=== PATIENT | female | born 1945 | race Caucasian/White ===

== ENCOUNTER 2016-04-17 00:17 | Inpatient (IN) | payer MEDICARE, OTHER ==
[~2016-04-17] VITALS: Ht 165.1 cm; Wt 86.2 kg
[2016-04-17] MEDS ORDERED: FEXO180T94 PO (00:27)
[2016-04-17] MEDS ORDERED: ASPIRIN 81 MG TAB.CHEW ONE (01:11)
[2016-04-17] MEDS ORDERED: ONDANSETRON HCL/PF 4 MG/2 ML VIAL ONE (01:11)
[2016-04-17] MEDS ORDERED: AMIODARONE 150 MG/3 ML VIAL IV ONE ×2 (01:11→01:19)
[2016-04-17] MEDS ORDERED: IV SET PRIMARY PUMP SET 1 EA INFUS.SET MC ONE (01:12)
[2016-04-17] MEDS ORDERED: IV D5W 100 ML IV ONE (01:12)
[2016-04-17] MEDS ORDERED: IV D5W 500 ML IV ONE (01:12)
[2016-04-17] MEDS ORDERED: IV SET PRIMARY 1 EA INFUS.SET MC ONE (01:12)
[2016-04-17] MEDS ORDERED: IV NS 0.9% 1,000 ML ONE (01:12)
[2016-04-17] MEDS ORDERED: AMIODARONE 150 MG in IV D5W 100 ML IV ONE (01:30)
[2016-04-17] MEDS ORDERED: ONDANSETRON HCL/PF 4 MG/2 ML VIAL IVP ONE (01:30)
[2016-04-17] MEDS ORDERED: AMIODARONE 900 MG in IV D5W 500 ML IV ONE (01:30)
[2016-04-17] MEDS ORDERED: IV NS 0.9% 1,000 ML BAG IV ONE (01:30)
[2016-04-17] MEDS ORDERED: ASPIRIN 81 MG TAB.CHEW PO ONE (01:30)
[2016-04-17 01:37] LABS: BASOPHILS % (AUTO) 0.5 % (0.0-2.0); DIFF TOTAL % 100 %; EOSINOPHILS # (AUTO) 0.1 /CMM (0.0-0.7); HEMATOCRIT 47 % (33-45); HEMOGLOBIN 15.4 g/dL (11.5-14.8); LYMPHOCYTES # (AUTO) 1.8 /CMM (0.8-4.8); LYMPHOCYTES % (AUTO) 24.9 % (20.0-44.0); MEAN CORPUSCULAR HEMOGLOBIN 28 PG (26.0-33.0); MEAN CORPUSCULAR HGB CONC 33 g/dl (31.0-36.0); MEAN CORPUSCULAR VOLUME 86 fL (82-100); MONOCYTES # (AUTO) 0.5 /CMM (0.1-1.30); MONOCYTES % (AUTO) 7.2 % (2.0-12.0); NEUTROPHILS # (AUTO) 4.8 /CMM (1.8-8.9); NEUTROPHILS % (AUTO) 65.4 % (43.0-81.0); PLATELET COUNT (AUTO) 201 /CMM (150-450); RED BLOOD CELL COUNT(AUTO) 5.47 MIL/uL (4.0-5.2); WHITE BLOOD COUNT (AUTO) 7.4 K/uL (4.3-11.0)
[2016-04-17 01:51] LABS: CALCIUM, SERUM 9.8 mg/dL (8.5-10.1); CREATININE 0.8 mg/dL (0.6-1.3); POTASSIUM 3.2 mmol/L (3.5-5.1)
[2016-04-17 01:55] LABS: INR 0.87 (0.87-1.13); PROTHROMBIN TIME 9.4 SECS (9.5-12.7)
[2016-04-17 01:59] LABS: TROPONIN I 0.04 ng/mL (0.00-0.056)
[2016-04-17 02:03] LABS: ALBUMIN 3.9 g/dL (3.4-5.0); BILIRUBIN,DIRECT 0.1 mg/dL (0.0-0.2); BILIRUBIN,TOTAL 0.4 mg/dL (0.2-1.0); INDIRECT BILIRUBIN 0.3 mg/dL (0.0-1.1); TOTAL PROTEIN, SERUM 7.8 g/dL (6.4-8.2)
[2016-04-17] MEDS ORDERED: POTASSIUM CHLORIDE 20 MEQ TAB.PRT.SR PO ONE ×2 (03:00→03:35)
[2016-04-17 04:05] VITALS: BP 151/100
[2016-04-17] MEDS ORDERED: MAG HYDROX/AL HYDROX/SIMETH 30 ML UDC PO PRN (04:30)
[2016-04-17] MEDS ORDERED: ONDANSETRON HCL/PF 4 MG/2 ML VIAL IVP PRN (04:30)
[2016-04-17] MEDS ORDERED: MAGNESIUM HYDROXIDE 30 ML UDC PO PRN (04:30)
[2016-04-17] MEDS ORDERED: Z GUARD REMEDY 2 OZ OINT TP PRN (04:30)
[2016-04-17] MEDS ORDERED: AMIODARONE 900 MG in IV D5W 482 ML IV PRN (04:30)
[2016-04-17] MEDS ORDERED: TEMAZEPAM 15 MG CAPSULE PO PRN (04:30)
[2016-04-17 04:47] VITALS: BP 151/100
[2016-04-17 07:41] LABS: THYROID STIMULATING HORMONE 3.21 uIU/mL (0.358-3.74)
[2016-04-17 08:00] VITALS: BP 153/73
[2016-04-17] MEDS: ASPIRIN 81 MG TAB.CHEW PO SCH (08:32)
[2016-04-17] MEDS: PANTOPRAZOLE 40 MG TABLET.DR PO SCH (08:32)
[2016-04-17 10:13] LABS: TROPONIN I 0.088 ng/mL (0.00-0.056)
[2016-04-17] MEDS: VALSARTAN 80 MG TABLET PO SCH (10:26)
[2016-04-17 12:00] VITALS: BP 144/67
[2016-04-17] MEDS: ACETAMINOPHEN 325 MG TABLET PO PRN ×2 (15:02→21:14)
[2016-04-17 16:00] VITALS: BP 134/58
[2016-04-17 20:00] VITALS: BP 143/67
[2016-04-18] VITALS: BP 150/70
[2016-04-18 04:00] VITALS: BP 154/75
[2016-04-18 06:54] LABS: BASOPHILS % (AUTO) 0.5 % (0.0-2.0); DIFF TOTAL % 100 %; EOSINOPHILS # (AUTO) 0.2 /CMM (0.0-0.7); EOSINOPHILS % (AUTO) 2.5 % (0.0-6.0); HEMATOCRIT 42 % (33-45); HEMOGLOBIN 13.8 g/dL (11.5-14.8); LYMPHOCYTES # (AUTO) 1.4 /CMM (0.8-4.8); LYMPHOCYTES % (AUTO) 20.3 % (20.0-44.0); MEAN CORPUSCULAR HEMOGLOBIN 28 PG (26.0-33.0); MEAN CORPUSCULAR HGB CONC 33 g/dl (31.0-36.0); MEAN CORPUSCULAR VOLUME 87 fL (82-100); MONOCYTES # (AUTO) 0.4 /CMM (0.1-1.30); MONOCYTES % (AUTO) 5.9 % (2.0-12.0); NEUTROPHILS # (AUTO) 4.8 /CMM (1.8-8.9); NEUTROPHILS % (AUTO) 70.8 % (43.0-81.0); PLATELET COUNT (AUTO) 176 /CMM (150-450); RED BLOOD CELL COUNT(AUTO) 4.85 MIL/uL (4.0-5.2); WHITE BLOOD COUNT (AUTO) 6.7 K/uL (4.3-11.0)
[2016-04-18 07:01] LABS: TROPONIN I 0.019 ng/mL (0.00-0.056)
[2016-04-18 07:02] LABS: ALBUMIN 3.4 g/dL (3.4-5.0); BILIRUBIN,TOTAL 0.5 mg/dL (0.2-1.0); CALCIUM, SERUM 8.6 mg/dL (8.5-10.1); CREATININE 0.7 mg/dL (0.6-1.3); PHOSPHORUS 3.4 mg/dL (2.5-4.9); POTASSIUM 3.5 mmol/L (3.5-5.1); TOTAL PROTEIN, SERUM 6.9 g/dL (6.4-8.2)
[2016-04-18 08:00] VITALS: BP 151/71
[2016-04-18] MEDS: PANTOPRAZOLE 40 MG TABLET.DR PO SCH (08:21)
[2016-04-18] MEDS: ASPIRIN 81 MG TAB.CHEW PO SCH (08:21)
[2016-04-18] MEDS: VALSARTAN 80 MG TABLET PO SCH (08:21)
[2016-04-18] MEDS ORDERED: METOPROLOL TARTRATE 50 MG TABLET PO SCH (11:00)
[2016-04-18] MEDS: ACETAMINOPHEN 325 MG TABLET PO PRN (11:08)
[2016-04-18 12:00] VITALS: BP 153/90
[2016-04-18 12:02] VITALS: BP 153/90
== END 2016-04-18 15:51 | disposition home or self-care (01) | DRG 282 ==
LOC: ER 00:18 → TELE-TD 03:59 → TELE1 04-18 10:20
PROVIDERS: ADMIT Nurse Practitioner Acute Care; ATTEND Nurse Practitioner Acute Care
DX: I47.1 Supraventricular tachycardia (principal); I21.4 Non-ST elevation (NSTEMI) myocardial infarction; I48.91 Unspecified atrial fibrillation; E78.5 Hyperlipidemia, unspecified; E87.6 Hypokalemia; E66.9 Obesity, unspecified; I10 Essential (primary) hypertension; I25.10 Atherosclerotic heart disease of native coronary artery without angina pectoris; Z68.31 Body mass index [BMI] 31.0-31.9, adult
CPT/HCPCS: 36415; 71010-TC; 80048-TC; 80053-TC; 80061-TC; 80076-TC; 82306; 83735-TC; 83880; 84100-TC; 84439-TC; 84443-TC; 84484-TC; 85025-TC; 85730-TC; 87081-TC; 93307-TC; A4606; J0282; J2405; J7030; J7060; Z7610